=== PATIENT | female | born 1970 ===

== ENCOUNTER 2018-03-17 12:20 | Day surgery (SDC) | payer OTHER ==
[~2018-03-17 12:20] MED LIST: LACTATED RINGERS 1,000 ML IV SCH
[2018-03-17 13:12] VITALS: TEMP 98.2
[2018-03-17] MEDS ORDERED: LIDOCAINE 1% 20 ML VIAL (10MG/ML) FOR IV START INTRADERMA ONE (13:12)
[2018-03-17] MEDS ORDERED: LIDOCAINE 1% INJ 10MG/ML (20 ML MDV) ONE (14:20)
[2018-03-17] MEDS ORDERED: PROPOFOL 10 MG/ML 20 ML VIAL IV ONE (14:20)
[2018-03-17 14:47] VITALS: RESP 16
--- NOTE | 2018-03-17 14:49 | P.PCN ---
Date of Procedure: 03/17/18 Procedure(s) Performed: Procedure: Total colonoscopy. Preoperative diagnosis: Abdominal pain and history of diverticular disease. Postoperative diagnosis: Sigmoid diverticulosis with no evidence of acute diverticulitis, strictures, polyps or cancer. Preparation: HalfLytely prep. Sedation: Was provided by anesthesia. Brief clinical history: The patient is a 48-year-old female with history of diverticulitis diagnosed by CT in 2014 that responded to antibiotic treatment. She had another episode in 2015 with resolution of her symptoms with treatment. The patient had recurrence of her symptoms in December of this year and her symptoms has persisted despite treatment with Flagyl. A CT of the abdomen last month showed sigmoid diverticulosis. She did not have significant improvement with Bentyl and continues to complain of left lower quadrant abdominal cramps and bloating and back pain and postprandial urgent BMs. Prior to December she had normal bowel movement once a day . This evaluation is scheduled to rule out complicated diverticular disease or other pathology. Procedure: With the patient on her left lateral decubitus position and after informed consent and adequate sedation, the perianal area was inspected and it did not show any fissures or fistulas. There were no masses felt on digital rectal examination. The Olympus CFQ 160L video colonoscope was then inserted in the rectum in the usual fashion and advanced to the cecum. There were multiple diverticular orifices seen scattered in the sigmoid but I saw no evidence of acute diverticulitis or strictures. The mucosa appeared healthy. No polyps or tumors were seen or any obvious pathology. I retroflexed the endoscope in the rectum before the endoscope was withdrawn. The patient tolerated the procedure well. Plan: The patient was reassured. Discussed dietary measures. She will follow- up in the office next month as planned and we would keep you updated on her progress.
[2018-03-17 15:18] VITALS: BP 143/97; PULSE 70
== END 2018-03-17 15:39 | disposition home or self-care (01) ==
LOC: ORWHC2ENDO 12:20
DX: K57.30 Diverticulosis of large intestine without perforation or abscess without bleeding (principal); Z88.1 Allergy status to other antibiotic agents; Z88.0 Allergy status to penicillin; Z88.2 Allergy status to sulfonamides
CPT/HCPCS: 45378; J2001; J2704